=== PATIENT | female | born 1940 | race American Indian/Alaskan Native ===

== ENCOUNTER 2020-05-08 09:38 | Outpatient (CLI) | payer MEDICARE ==
--- NOTE | 2020-05-08 10:52 | XRay Report ---
CHEST 2 VIEWS INDICATION / CLINICAL INFORMATION: SHORTNESS OF BREATH. COMPARISON: None available. FINDINGS: SUPPORT DEVICES: None. HEART / MEDIASTINUM: No significant abnormality. LUNGS / PLEURA: No significant pulmonary or pleural abnormality. No pneumothorax. ADDITIONAL FINDINGS: No significant additional findings. IMPRESSION: 1. No acute findings. Signer Name: Chris Alcaraz MD Signed: 05/08/2020 10:48 AM Workstation Name: [id number]
== END 2020-05-08 09:39 | disposition home or self-care (01) ==
LOC: XRAY 09:38
PROVIDERS: ATTEND Internal Medicine
DX: J44.9 Chronic obstructive pulmonary disease, unspecified (principal); E78.00 Pure hypercholesterolemia, unspecified; J45.909 Unspecified asthma, uncomplicated; E07.9 Disorder of thyroid, unspecified
CPT/HCPCS: 71046

== ENCOUNTER 2020-05-08 10:59 | Emergency (ER) | payer MEDICARE ==
[~2020-05-08 10:59] MED LIST: IPRATROPIUM/ALBUTEROL SULFATE 3 ML AMPUL.NEB IH ONE
--- NOTE | 2020-05-08 11:19 | Emergency Department Report ---
ED Dizziness HPI - General Stated Complaint: MEDICAL Time Seen by Provider: 05/08/20 11:10 - History of Present Illness Initial Comments: 79-year-old female, history of COPD (wears O2 as needed), presents to ED for near syncope. Patient presented to hospital to have outpatient ABG performed. Respiratory therapist states patient told her, "I am going to be your worst patient today. I hate this procedure. "Respiratory therapist states she start patient once and patient then reported that she was feeling as if she was going to pass out. Patient then started having convulsions that lasted for a few seconds. The convulsions stopped and patient was responsive, however she began sliding out of her chair, so CODE MET was called. Patient was brought down to the ED. She is tearful and stating that she just feels like she is going to pass out. Patient denies any chest pain, headache, fever, cough. Patient states she is having some shortness of breath. Patient states that she has had this reaction before when she had to have an ABG drawn. Patient states when she has had regular venous blood work done, she does not have the same reaction. However, patient states that there is something about the needle being all the way down into her arm wrist that makes her feel dizzy and lightheaded. Patient had an episode of the shaking when she first arrived in the room, however she was alert and responsive throughout the event. Immediately responsive afterward. The shaking lasted for approximately 10 seconds. Complaint: lightheadedness -: minutes(s) (20) Timing: sudden onset Description: lightheadedness, near-syncope History of Same: Yes Severity: moderate Improves With: remaining still Worsens With: other (ABG draw) Associated Symptoms: shortness of breath. denies: chest pain, cough, fever/chills - Related Data Allergies Allergy/AdvReac Type Severity Reaction Status Date / Time No Known Allergies Allergy Unverified 05/08/20 11:20 ED Review of Systems ROS: Stated complaint: MEDICAL Other details as noted in HPI Comment: All other systems reviewed and negative Constitutional: denies: chills, fever Respiratory: shortness of breath. denies: cough Cardiovascular: denies: chest pain Gastrointestinal: denies: nausea, vomiting, diarrhea Neurological: denies: headache, weakness, numbness ED Physical Exam - General General appearance: alert, in no apparent distress - Head Head exam: Present: atraumatic, normocephalic - Eye Eye exam: Present: normal appearance, EOMI - ENT ENT exam: Present: mucous membranes moist - Neck Neck exam: Present: normal inspection - Respiratory Respiratory exam: Present: normal lung sounds bilaterally. Absent: respiratory distress - Cardiovascular Cardiovascular Exam: Present: regular rate, normal rhythm - GI/Abdominal GI/Abdominal exam: Present: soft. Absent: distended, tenderness - Extremities Exam Extremities exam: Present: normal inspection - Neurological Exam Neurological exam: Present: alert, oriented X3, CN II-XII intact. Absent: motor sensory deficit - Psychiatric Psychiatric exam: Present: anxious - Skin Skin exam: Present: warm, dry, intact, normal color ED Course Vital Signs 05/08/20 05/08/20 05/08/20 11:05 11:08 11:15 Temperature 97.5 F L Pulse Rate 98 H 98 H Respiratory 18 19 Rate Blood Pressure Blood Pressure 154/107 [Left] O2 Sat by Pulse 96 96 Oximetry 05/08/20 05/08/20 05/08/20 11:16 12:13 12:20 Temperature 97.5 F L Pulse Rate 98 H 77 Respiratory 18 26 H Rate Blood Pressure 154/107 Blood Pressure 166/110 [Left] O2 Sat by Pulse 96 94 89 Oximetry 05/08/20 05/08/20 12:32 13:45 Temperature Pulse Rate 88 75 Respiratory 20 18 Rate Blood Pressure Blood Pressure 166/110 [Left] O2 Sat by Pulse 97 95 Oximetry ED Medical Decision Making - Lab Data Result diagrams: 05/08/20 11:20 05/08/20 11:20 - EKG Data -: EKG Interpreted by Ct EKG shows normal: sinus rhythm, axis, QRS complexes, ST-T waves Rate: normal - EKG Data Interpretation: no acute changes, other (incomplete RBBB and LAFB) - Radiology Data Radiology results: report reviewed, image reviewed - Medical Decision Making 79-year-old female appears to have had an anxiety attack while having an ABG drawn. Patient states this is happened before with an ABG. Patient has no neuro deficits. Labs are unremarkable. EKG shows no ST changes. Chest x-ray and CT head are both unremarkable. Patient is feeling much better at this time. She has been ambulatory without any assistance. She states that she is ready to go home. Will discharge at this time, return precautions given. - Differential Diagnosis Anxiety, seizure, CVA Critical care attestation.: If time is entered above; I have spent that time in minutes in the direct care of this critically ill patient, excluding procedure time. ED Disposition Clinical Impression: Anxiety reaction Disposition: DC-01 TO HOME OR SELFCARE Is pt being admited?: No Condition: Stable Instructions: Managing Anxiety, Adult Referrals: PRIMARY CARE, [Primary Care Provider] - 3-5 Days Time of Disposition: 13:30
[2020-05-08] MEDS ORDERED: IPRATROPIUM/ALBUTEROL SULFATE 3 ML AMPUL.NEB IH ONE (11:36)
[2020-05-08 11:56] LABS: Basophils % (Auto) 0.6 % (0.0-1.8); Eosinophils # (Auto) 0.1 K/mm3 (0.0-0.4); Eosinophils % (Auto) 1.2 % (0.0-4.3); Hematocrit 43.1 % (30.3-42.9); Hemoglobin 14.2 gm/dl (10.1-14.3); Lymphocytes # (Auto) 2.1 K/mm3 (1.2-5.4); Lymphocytes % (Auto) 47.1 % (13.4-35.0); Mean Corpuscular HGB Conc 33 % (30-34); Mean Corpuscular Volume 95 fl (79-97); Monocytes # (Auto) 0.5 K/mm3 (0.0-0.8); Monocytes % (Auto) 11.4 % (0.0-7.3); Platelet Count 134 K/mm3 (140-440); Red Blood Count 4.53 M/mm3 (3.65-5.03); Red Cell Distribution Width 13.6 % (13.2-15.2)
[2020-05-08 12:14] VITALS: BP 166/110
[2020-05-08 12:16] LABS: INR 1.04 (0.87-1.13)
[2020-05-08 12:17] LABS: Partial Thromboplastin Time 32.3 Sec. (24.2-36.6)
[2020-05-08 12:18] LABS: Alanine Aminotransferase 17 units/L (7-56); Albumin 4.4 g/dL (3.9-5); BUN/Creatinine Ratio 14; Bilirubin,Direct < 0.2 mg/dL (0-0.2); Blood Urea Nitrogen 10 mg/dL (7-17); Calcium 9.2 mg/dL (8.4-10.2); Hemolysis Index 5
--- NOTE | 2020-05-08 12:26 | XRay Report ---
CHEST 1 VIEW 05/08/2020 11:19 AM INDICATION / CLINICAL INFORMATION: near syncope, shortness of breath. COMPARISON: Chest x-ray done earlier on 05/08/2020 FINDINGS: SUPPORT DEVICES: None. HEART / MEDIASTINUM: No significant abnormality. LUNGS / PLEURA: No significant pulmonary or pleural abnormality. No pneumothorax. ADDITIONAL FINDINGS: No significant additional findings. IMPRESSION: 1. No acute findings. Signer Name: Chris Alcaraz MD Signed: 05/08/2020 12:22 PM Workstation Name: [id number]
--- NOTE | 2020-05-08 13:25 | Cat Scan Report ---
CT head/brain wo con INDICATION: Possible seizure. TECHNIQUE: Routine CT head without contrast. All CT scans at this location are performed using CT dos e reduction for ALARA by means of automated exposure control. COMPARISON: None. FINDINGS: BRAIN / INTRACRANIAL CONTENTS: No acute hemorrhage, mass effect, midline shift, or hydrocephalus. No appreciable acute large territorial or lacunar infarct. No chronic infarct or focal atrophy. Normal b rain volume and ventricular/sulcal size for age. ORBITS: No significant abnormality of visualized orbits. SINUSES / MASTOIDS: No significant abnormality of visualized sinuses and mastoid air cells. ADDITIONAL FINDINGS: None. IMPRESSION: 1. No acute intracranial abnormality. Signer Name: Chris Alcaraz MD Signed: 05/08/2020 1:21 PM Workstation Name: [id number]
== END 2020-05-08 13:45 | disposition home or self-care (01) ==
LOC: ED 10:59
DX: F41.9 Anxiety disorder, unspecified (principal)
CPT/HCPCS: 36415; 70450; 71045; 80048; 80076; 82962; 84484; 85025; 85610; 85730; 93005